=== PATIENT | male | born 1955 | race Caucasian/White ===

== ENCOUNTER 2019-10-10 01:58 | Emergency (ER) | payer OTHER ==
[~2019-10-10] VITALS: Ht 180.3 cm; Wt 108.9 kg
[2019-10-10] MEDS ORDERED: LIPITOR20 MG (02:10)
[2019-10-10] MEDS ORDERED: LANTUS SOL100 UNIT/1 (02:10)
[2019-10-10] MEDS ORDERED: ASPIR 8181 MG (02:10)
[2019-10-10] MEDS ORDERED: AVAPRO75 MG (02:11)
[2019-10-10] MEDS ORDERED: KETO10TA2 PO (06:35)
[2019-10-10] MEDS ORDERED: TAMS0.4C PO (06:35)
== END 2019-10-10 06:48 ==
LOC: ER 01:58
DX: R10.32 Left lower quadrant pain (principal); N20.1 Calculus of ureter